=== PATIENT | female | born 1980 | race Caucasian/White ===

== ENCOUNTER 2023-01-19 11:11 | Emergency (ER) | payer MEDICAID ==
[~2023-01-19] VITALS: Ht 162.6 cm; Wt 81.0 kg
[2023-01-19] MEDS ORDERED: ONDANSETRON 4MG ODT PO STA ×2 (13:02→13:51)
[2023-01-19 13:19] LABS: BASOPHILS % 0.4 % (0.0-2.0); EOSINOPHILS % 0.1 % (0.0-5.0); HEMATOCRIT. 43.4 % (36.0-48.0); HEMOGLOBIN. 15.1 g/dL (12.0-16.0); MEAN CORPUSCULAR VOLUME 95.1 fL (81.0-99.0); MEAN PLATELET VOLUME 8.6 fl (7.4-10.4); MONOCYTES % 4.1 % (2.0-8.0); NEUTROPHILS % 80.4 % (40.0-76.0); PLATELET 224 x1000/uL (130-400); RED BLOOD CELL COUNT 4.56 mill/uL (4.2-5.4); RED CELL DISTRIBUTION WIDTH 13.5 % (11.6-14.6)
[2023-01-19 13:25] LABS: CHLORIDE 102 mEq/L (98-107)
[2023-01-19] MEDS ORDERED: VISCOUS LIDOCAINE 2% 15 ML UDC PO STA (13:51)
[2023-01-19] MEDS ORDERED: MAGNESIUM/ALUMINUM HYDROXIDE/SIMETHICONE 30ML UDC PO STA (13:51)
[2023-01-19] MEDS ORDERED: DICYCLOMINE 10 MG/5 ML ORAL SYR PO STA (13:51)
[2023-01-19] MEDS ORDERED: ONDA4TAB11 PO (14:32)
[2023-01-19] MEDS ORDERED: FAMO-135 MT (14:32)
[2023-01-19 15:09] VITALS: BP 136/88
== END 2023-01-19 15:11 | disposition home or self-care (01) ==
LOC: ER 14:36
DX: K29.70 Gastritis, unspecified, without bleeding (principal); K75.9 Inflammatory liver disease, unspecified; F10.10 Alcohol abuse, uncomplicated; D64.9 Anemia, unspecified; I10 Essential (primary) hypertension; Z98.890 Other specified postprocedural states
CPT/HCPCS: 36415; 80053; 83690; 85025; 99284; Q0162